=== PATIENT | female | born 1970 | race Hispanic/Latino ===

== ENCOUNTER → 2017-12-06 | Outpatient (CLI) | payer BC ==
[~2017-12-06] MED LIST: IOPAMIDOL-370 100 ML VIAL IV ONE; ISOVUE-370 50ML VIAL IV ONE
== END | disposition home or self-care (01) ==
LOC: OIH 09:54
PROVIDERS: ATTEND Family Medicine
DX: N83.8 Other noninflammatory disorders of ovary, fallopian tube and broad ligament (principal); K42.9 Umbilical hernia without obstruction or gangrene; J98.11 Atelectasis; Z90.49 Acquired absence of other specified parts of digestive tract
CPT/HCPCS: 74178; Q9967 ×2

== ENCOUNTER 2018-01-13 14:13 | Emergency (ER) | payer BC ==
[~2018-01-13 14:13] MED LIST changes: +ACET1TAB25 PO; +CITA-107 PO; +ESCI20TA36 PO; +FURO40TA5 PO; +HYDR-3421 PO; +IBUP-1673 PO; -IOPAMIDOL-370 100 ML VIAL IV ONE; -ISOVUE-370 50ML VIAL IV ONE; +LEVO500T2 PO; +LISI1TAB13 PO; +METR500T PO; +PIOG30TA70 PO; +POTA10TA14 PO; +SIMV10TA6 PO; +TRAZ-185 PO
[2018-01-13 15:45] LABS: BASOPHILS % (AUTO) 1.5 % (0.0-5.0); EOSINOPHILS % (AUTO) 2.1 % (0.0-8.0); HEMATOCRIT 37.9 % (36-48); LYMPHOCYTES % (AUTO) 22.5 % (21.0-51.0); MEAN CORPUSCULAR HEMOGLOBIN 29.5 pg (27.0-33.0); MEAN CORPUSCULAR HGB CONC 33.2 g/dL (32.0-36.0); MEAN CORPUSCULAR VOLUME 88.8 fL (79-99); MONOCYTES % (AUTO) 9.6 % (3.0-13.0); NEUTROPHILS % (AUTO) 64.3 % (40.0-77.0); PLATELET COUNT (AUTO) 383 K/uL (130-400); RED BLOOD CELL COUNT(AUTO) 4.26 MIL/uL (4.00-5.50); RED CELL DISTRIBUTION WIDTH 16.1 % (11.0-15.5)
[2018-01-13 16:15] LABS: CRP QUANTITATIVE 18.7 mg/L (0.00-9.0)
[2018-01-13 16:47] LABS: ERYTHROCYTE SEDIMENTATION RATE 85 MM/HR (0-20)
[2018-01-13 17:15] LABS: CREATININE 1.1 mg/dL (0.5-1.5); POTASSIUM 4.1 mmol/L (3.5-5.1)
[2018-01-13 17:19] LABS: ALBUMIN 2.9 g/dL (3.5-5.0); BILIRUBIN,TOTAL 0.3 mg/dL (0.2-1.0)
[2018-01-13 17:21] LABS: APPEARANCE,URINE Cloudy (CLEAR); BILIRUBIN,URINE Small (NEGATIVE); COLOR,URINE Dark Yellow (YELLOW); GLUCOSE, URINE (UA) Negative (NEGATIVE); KETONES,URINE Trace mg/dL (NEGATIVE); LEUKOCYTE ESTERASE ,URINE Small (NEGATIVE); NITRATE,URINE Negative (NEGATIVE); OCCULT BLOOD,URINE Large (NEGATIVE); PH,URINE 5.5 (5.0-8.0); PROTEIN,URINE POS 1+ (NEGATIVE)
[2018-01-13 17:40] LABS: BACTERIA,URINE Few /HPF (None Seen); RBC,URINE >100 /HPF (0-1)
[2018-01-13 17:41] LABS: MUCUS,URINE Few LPF (None Seen)
[2018-01-13] MEDS ORDERED: KETOROLAC TROMETHAMINE 30MG/ML ONE (17:57)
== END 2018-01-13 18:59 | disposition home or self-care (01) ==
LOC: EDH 14:13
DX: R10.84 Generalized abdominal pain (principal); K65.1 Peritoneal abscess; E11.9 Type 2 diabetes mellitus without complications; R19.7 Diarrhea, unspecified; R11.0 Nausea; E78.00 Pure hypercholesterolemia, unspecified; I10 Essential (primary) hypertension; F41.9 Anxiety disorder, unspecified; M79.605 Pain in left leg; F32.9 Major depressive disorder, single episode, unspecified; Z90.49 Acquired absence of other specified parts of digestive tract; Z98.890 Other specified postprocedural states
CPT/HCPCS: 36415; 74176; 80053; 81001; 81025; 82550; 84484; 85025; 85651; 86140; 93005; 96374; 99285; J1885